=== PATIENT | male | born 1950 | race Caucasian/White ===

== ENCOUNTER 2023-01-12 07:23 | Day surgery (SDC) | payer MEDICARE, OTHER ==
[2023-01-12] MEDS ORDERED: fentaNYL 100 MCG/2 ML SDV IV ONE (07:24)
[2023-01-12] MEDS ORDERED: Midazolam 1 MG/ML 2 ML SDV IV ONE (07:24)
[2023-01-12] MEDS ORDERED: Lactated Ringers 1,000 ML IV PRN (07:30)
[2023-01-12] MEDS ORDERED: Sodium Chloride 0.9% 10 ML Syringe FLUSH PRN (07:30)
[2023-01-12] MEDS ORDERED: acetaZOLAMIDE 500 MG Cap.ER PO ONE (09:30)
== END 2023-01-12 09:57 | disposition home or self-care (01) ==
LOC: FB.SDS 07:23
PROVIDERS: ATTEND Ophthalmology
DX: E11.36 Type 2 diabetes mellitus with diabetic cataract (principal); H26.9 Unspecified cataract; H21.81 Floppy iris syndrome; H40.1122 Primary open-angle glaucoma, left eye, moderate stage; E78.5 Hyperlipidemia, unspecified; I10 Essential (primary) hypertension; E66.9 Obesity, unspecified; Z79.82 Long term (current) use of aspirin; Z79.84 Long term (current) use of oral hypoglycemic drugs; Z79.899 Other long term (current) drug therapy; Z68.34 Body mass index [BMI] 34.0-34.9, adult
CPT/HCPCS: 00142; 66991; 82947; A9270; J2250; J3010; J7120; V2632

== ENCOUNTER 2023-02-09 07:42 | Day surgery (SDC) | payer MEDICARE, OTHER ==
[2023-02-09] MEDS ORDERED: Midazolam 1 MG/ML 2 ML SDV IV ONE (07:43)
[2023-02-09] MEDS ORDERED: Sodium Chloride 0.9% 10 ML Syringe IV ONE (07:43)
[2023-02-09] MEDS ORDERED: fentaNYL 100 MCG/2 ML SDV IV ONE (07:43)
[2023-02-09] MEDS ORDERED: Lactated Ringers 1,000 ML IV PRN (08:00)
[2023-02-09] MEDS ORDERED: Sodium Chloride 0.9% 10 ML Syringe FLUSH PRN (08:00)
[2023-02-09] MEDS ORDERED: acetaZOLAMIDE 500 MG Cap.ER PO ONE (10:00)
== END 2023-02-09 10:19 | disposition home or self-care (01) ==
LOC: FB.SDS 07:42
PROVIDERS: ATTEND Ophthalmology
DX: H40.1112 Primary open-angle glaucoma, right eye, moderate stage (principal); H25.811 Combined forms of age-related cataract, right eye; E78.5 Hyperlipidemia, unspecified; I10 Essential (primary) hypertension; E11.9 Type 2 diabetes mellitus without complications; E66.9 Obesity, unspecified; Z68.30 Body mass index [BMI] 30.0-30.9, adult; Z79.82 Long term (current) use of aspirin; Z79.84 Long term (current) use of oral hypoglycemic drugs; Z79.899 Other long term (current) drug therapy
CPT/HCPCS: 00142; 82947; A9270-GY; J2250; J3010; J3490